=== PATIENT | male | born 1995 | race American Indian/Alaskan Native ===

== ENCOUNTER 2019-03-03 14:34 | Emergency (ER) | payer OTHER ==
[2019-03-03 14:40] VITALS: BP 138/82
--- NOTE | 2019-03-03 15:18 | Emergency Department Report ---
Chief Complaint: Urogenital-Male Stated Complaint: DISCHARGE Time Seen by Provider: 03/03/19 14:40 - HPI History of Present Illness: This is a 24 y.o. male that presents to the emergency room for STD screening. Patient states his girlfriend is , seen in this emergency room last night and diagnosed with trichomoniasis. Patient is requesting STD screening. He denies penile discharge, pelvic pain, low back pain, urinary frequency, urgency, dysuria. - Exam Vital Signs: Vital Signs 03/03/19 14:39 Temperature 97.3 F L Pulse Rate 98 H Respiratory 20 Rate Blood Pressure 138/82 O2 Sat by Pulse 99 Oximetry Physical Exam: GENERAL: The patient is well looking, in no acute distress. HEENT: Atraumatic and normocephalic. Pupils are equal, round, reactive to light, and accommodation. Extraocular movements are intact. There is no icterus, cyanosis, or pallor of the conjunctivae. Tympanic membranes normal bilaterally. Nasal turbinates are clear without exudates. Sinuses nontender to percussion. Posterior pharynx is normal. No exudates are noted. CHEST: Air entry is adequate bilaterally with no rhonchi, and crackles. HEART: Sounds 1 and 2 are heard and are normal. Regular rate and rhythm, no tachycardic, murmurs, gallops, or rubs. ABDOMEN: Soft and nontender. Bowel sounds are present and normal. There is no hepatosplenomegaly. SKIN: Without rash. EXTREMITIES: Without edema, cyanosis, or clubbing. MSE screening note: Focused history and physical exam performed. Due to findings the following was ordered: Non-medical emergency. ED Medical Decision Making - Medical Decision Making This is a 24-year-old -Citizen Of The [place] male who presents for STD screening. Denies penile discharge, urinary frequency, urgency, pelvic pain or low back pain. Patient was examined by me. Vitals are stable and in no acute distress. No labs ordered. Non-medical emergency. Patient given handout for f/u with health department or PCP for further evaluation. Discharged home in stable condition. Discussed prevention options. F/U with PCP or Health Department. ED Disposition for MSE Clinical Impression: Exposure to STD Disposition: DC-01 TO HOME OR SELFCARE Is pt being admited?: No Does the pt Need Aspirin: No Condition: Stable Instructions: Sexually Transmitted Diseases (ED), Safe Sex (ED) Additional Instructions: Follow up with the health department or primary care provider for full screening. Referrals: LANE MARQUEZ MD [Primary Care Provider] - 3-5 Days [facility] [Outside] - 3-5 Days [facility] [Outside] - 3-5 Days [facility] [Outside] - 3-5 Days Forms: Work/School Release Form(ED) Time of Disposition: 16:10
== END 2019-03-03 16:25 | disposition home or self-care (01) ==
LOC: ED 14:34
DX: A64 Unspecified sexually transmitted disease (principal); Z88.1 Allergy status to other antibiotic agents
CPT/HCPCS: 99281